=== PATIENT | female | born 1980 | race Caucasian/White ===

== ENCOUNTER 2018-01-14 12:06 | Emergency (ER) | payer BC ==
[~2018-01-14] VITALS: Ht 160 cm; Wt 72.6 kg
[2018-01-14 13:36] LABS: BASO # 0.1 10*3/uL (0.0-0.1); BASO % 0.5 % (0.0-1.0); EOS # 0.8 10*3/uL (0.0-0.4); EOS % 5.3 % (1.0-4.0); HEMATOCRIT 41.1 % (37.0-47.0); HEMOGLOBIN 13.9 g/dl (12.0-16.0); LYMPH % 19.1 % (27.0-41.0); MEAN CELL VOLUME 89.3 fl (81.0-99.0); MEAN CORPUSCULAR HGB 30.2 pg (27.0-31.0); MEAN CORPUSCULAR HGB CONC 33.8 g/dl (33.0-37.0); MEAN PLATELET VOLUME 8.9 fl (9.6-12.3); MONO % 6.6 % (3.0-9.0); NEUT # 10.5 10*3/uL (2.3-7.9); NEUT % 67.7 % (47.0-73.0); PLATELET COUNT AUTOMATED 377 10*3/uL (130-400); WHITE BLOOD COUNT 15.6 10*3/uL (4.8-10.8)
[2018-01-14] MEDS ORDERED: MEDROL DOSEPAK4 MG PO (13:47)
[2018-01-14 13:49] LABS: BUN 12 mg/dl (7-24); CHLORIDE 102 mmol/L (98-107); POTASSIUM 3.9 mmol/L (3.5-5.1); SODIUM 136 mmol/L (136-145)
[2018-01-14] MEDS ORDERED: ZITHROMAX250 MG PO (13:50)
== END 2018-01-14 13:55 | disposition left against medical advice (07) ==
LOC: ED 12:06
PROVIDERS: Emergency Medicine
DX: O26.891 Other specified pregnancy related conditions, first trimester (principal); R06.02 Shortness of breath; R42 Dizziness and giddiness; R05 Cough; Z3A.01 Less than 8 weeks gestation of pregnancy